=== PATIENT | male | born 1990 | race Two or more races ===

== ENCOUNTER 2017-06-19 20:34 | Emergency (ER) | payer SELFPAY ==
[~2017-06-19] VITALS: Ht 182.9 cm; Wt 81.6 kg
[2017-06-19] MEDS ORDERED: KETOROLAC 60MG/2ML VIAL IM ONE (23:00)
[2017-06-19 23:13] VITALS: BP 110/71
== END 2017-06-20 00:39 | disposition home or self-care (01) ==
LOC: ER 22:05
DX: T16.2XXA Foreign body in left ear, initial encounter (principal); X58.XXXA Exposure to other specified factors, initial encounter; Y93.89 Activity, other specified; Y92.89 Other specified places as the place of occurrence of the external cause; Y99.8 Other external cause status
CPT/HCPCS: 69200; 96372; 99284; J1885; Z7610